=== PATIENT | female | born 1995 | race Caucasian/White ===

== ENCOUNTER → 2017-05-02 09:59 | Outpatient (CLI) | payer BC, SELFPAY ==
--- NOTE | 2017-05-02 10:05 | CT_ITS ---
CT abdomen pelvis w con CLINICAL INDICATION: Mid to lower abdominal pain with nausea ITS.REASON: LOW ABD PAIN, NAUSEA ORDERING PHYSICIAN: Olga Ramirez PATIENT AGE: 21 years COMPARISON: None TECHNIQUE: Axial images obtained with sagittal and coronal reformats. PROCEDURE: Oral Contrast: Redicat IV Contrast: 75 mL's of Isovue-370 Lower thorax: Unremarkable. Abdomen pelvis: The liver, gallbladder, spleen, adrenal glands, and pancreas has an unremarkable appearance. No renal calculi or hydronephrosis or ureteral calculi evident. Unremarkable appearing urinary bladder. Unremarkable appendix. There is moderate amount retained colonic feces throughout the colon. No evidence of small bowel obstruction. The uterus is anteverted with prominence of the isodensity of the endometrium having a somewhat didelphys appearance. Small area of decreased attenuation is present involving the body the uterus anteriorly at 8 mm. Consider ultrasound for further evaluation. 14 mm right ovarian cyst noted. No acute bony anomalies. IMPRESSION: 1. No acute abdominal or pelvic findings. 2. Constipation 3. Prominent endometrial isodensity with possible uterine didelphys. 8 mm isodensity in the body the anteverted uterus etiology indeterminate. Suggest ultrasound for further evaluation. 14 mm right ovarian cyst
== END ==
PROVIDERS: Family Provider Family Medicine; PCP Family Medicine; Visit Provider Nurse Practitioner
DX: R10.30 Lower abdominal pain, unspecified (principal); R11.0 Nausea
CPT/HCPCS: 74177

== ENCOUNTER → 2017-05-06 10:02 | Outpatient (CLI) | payer BC, SELFPAY ==
--- NOTE | 2017-05-06 10:08 | US_ITS ---
US abdomen limited Ordering Physician: Mart John MD Patient Age: 21 years: Female HISTORY: ITS.REASON: DYSPEPSIA TECHNIQUE: Transabdominal ultrasound COMPARISON :Recent CT abdomen 05/02/2017 FINDINGS Pancreas. Unremarkable.. Liver. No significant findings. Unremarkable no ductal dilatation. Portal vein normal direction flow and caliber. Gallbladder. No stones. Septations most evident at neck of GB, but also seen elsewhere at gallbladder-most evident at posterior wall.. Gallbladder wall normal to upper normal thickness. . Common duct normal diameter 3.1 mm at hilum of liver. Right kidney normal.: 10.4 cm in length with cortex well-maintained. IMPRESSION: 1. Gallbladder. No gallstones. Normal to upper normal wall thickness of GB with A few septations. 2. Otherwise unremarkable RUQ ultrasound
--- NOTE | 2017-05-06 10:08 | US_ITS ---
US transvaginal Ordering Physician: Mart John MD Patient Age: 21 years: Female HISTORY: ITS.REASON: RT OVARIAN CYSTS Left lower quadrant pain TECHNIQUE: Transvaginal pelvic ultrasound . Hayley Still COMPARISON :CT abdomen pelvis 05/02/2017 FINDINGS Anteflexed Uterus: 7.2 cm length as 3.5 cm x 1.8 cm. Thickened Endometrial stripe = 1.[address] uterus had a rather heart shaped didelphys appearance.. This this is less clear on today's ultrasound images but given generous transverse width of the uterus towards fundus on today's ultrasound body, I suspect this is indeed the case.. Also there the recent CT there was vague additional low-density adjacent to the endometrial stripe towards the posterior myometrium. I do not see a discrete fibroid on submitted images from today's ultrasound study to match.. & Technologist Hayley Still did not observe such either real-time imaging Ovaries contain numerous small follicles with rather polycystic appearance. Majority are small follicles measuring less millimeters or less size. Good flow to both ovaries Right ovary 3.8 x 2.3 x 2.3 cm With most prominent follicle measuring up to just less than 1 cm at the right ovary. Left ovary 2.6 x 2.3 x 1.6 cm. AP Minimal fluid collection at cul-de-sac measures up to 3 cm length x 3.6 cm transverse 1.6 cm AP IMPRESSION: 1. Thickened endometrial stripe measures 1.1 cm. The generous width of the superior uterus likely reflects the heart shaped/ didelphys appearance noted on recent CT pelvis 2. Numerous follicles both ovaries. The Larger right ovary up to 3.8 cm. It also contains most evident follicle measuring up to 1 cm] 3. Minimal fluid in cul-de-sac
--- NOTE | 2017-05-06 10:12 | NM_ITS ---
HEPATOBILIARY SCAN WITH CCK: ORDERING PHYSICIAN : Mart John MD PATIENT AGE: 21 years GENDER: Female HISTORY: Right upper quadrant pain and nausea Following 8.01 millicuries Tc Choletec, images of the right upper quadrant were obtained. There is prompt uptake of radionuclide by the liver which is grossly unremarkable. Small bowel is visualized. This initial pre-CCK portion of the study is normal. The gallbladder was allowed to fill out to 50 to 60 minutes which point 1.2 micrograms CCK was administered by way infusion pump in the typical fashion. This results in23% percent fraction (normal greater than 50%; borderline 35-50%). . IMPRESSION: Abnormal Low 23% ejection fraction following CCK administration . Reflects chronic cholecystitis and/or Biliary dyskinesia.
--- NOTE | 2017-05-06 11:03 | HMH.ITSHM ---
PAIN MED ANTIBIOTIC
== END ==
PROVIDERS: Family Provider Family Medicine; PCP Family Medicine; Visit Provider Family Medicine
DX: N83.201 Unspecified ovarian cyst, right side (principal); R93.8 Abnormal findings on diagnostic imaging of other specified body structures; R10.32 Left lower quadrant pain
CPT/HCPCS: 76705; 76830; 78227; A9537; J2805

== ENCOUNTER → 2017-05-20 14:07 | Outpatient (CLI) | payer BC, SELFPAY ==
[2017-05-20 14:24] LABS: Basophils # 0.1 K/mm3 (0-0.2); Basophils % 0.7 % (0.1-2.0); Eosinophils # 0.2 K/mm3 (0.0-0.4); Eosinophils % 2.2 % (0.1-12.0); Hematocrit 42.1 % (37.0-47.0); Hemoglobin 13.7 g/dL (12.2-16.2); Lymphocytes # 1.8 K/mm3 (0.7-4.5); Lymphocytes % 24.5 K/mm3 (10-50); Mean Corpuscular HGB Conc 32.5 g/dL (31.8-35.4); Mean Corpuscular Hemoglobin 29.4 pg (27.0-31.2); Mean Corpuscular Volume 90.6 fl (81-99); Mean Platelet Volume 7.5 fl (7.4-10.4); Monocytes # 0.3 K/mm3 (0.1-1.0); Monocytes % 4.1 % (1.7-9.3); Neutrophils # 4.9 K/mm3 (1.8-7.8); Neutrophils % 68.4 % (37.0-80.0); Platelet Count 249 K/mm3 (142-424); Red Blood Count 4.65 M/mm3 (4.20-5.40); Red Cell Distribution Width 12.3 % (11.5-17.5); White Blood Count 7.2 K/mm3 (4.5-13.0)
[2017-05-20 15:04] LABS: Alanine Aminotransferase 27 U/L (12-78); Albumin Level 4.1 gm/dL (3.4-5.0); Albumin/Globulin Ratio 1.2 (1.1-1.8); Alkaline Phosphatase 75 U/L (46-116); Anion Gap 13.1 mEq/L (5-15); Aspartate Amino Transferase 18 U/L (15-37); Bilirubin,Total 0.3 mg/dL (0.2-1.0); Blood Urea Nitrogen 17 mg/dL (7-18); Calcium 9.1 mg/dL (8.5-10.1); Carbon Dioxide 27 mmol/L (21.0-32.0); Chloride 107 mmol/L (98-107); Estimated Glomerular Filt Rate 91 ml/min (>60); GFR (African American) 111 ML/MIN (>60); Globulin 3.5 gm/dl (1.3-3.2); Glucose 92 mg/dL (74-106); Potassium 4.1 mmoL/L (3.5-5.1); Sodium 143 mmol/L (136-145); Total Protein,Serum 7.6 gm/dL (6.4-8.2)
== END ==
PROVIDERS: Visit Provider Surgery
DX: K82.9 Disease of gallbladder, unspecified; Z01.812 Encounter for preprocedural laboratory examination
CPT/HCPCS: 36415; 80053; 85025

== ENCOUNTER → 2022-10-25 23:41 | Outpatient (CLI) | payer SELFPAY ==
[2022-10-25 18:23] LABS: Coronavirus 19, PCR Not Detected (NotDetected); Influenza A, PCR Not Detected (NotDetected); Influenza B, PCR Not Detected (NotDetected)
[2022-10-25 18:46] LABS: Basophils % 0.1 % (0.1-2.0); Eosinophils % 0.1 % (0.1-12.0); Hematocrit 39.5 % (37.0-47.0); Hemoglobin 12.7 g/dL (12.2-16.2); Lymphocytes % 3.4 % (10-50); Mean Corpuscular HGB Conc 32.2 g/dL (31.8-35.4); Mean Corpuscular Hemoglobin 26.3 pg (27.0-31.2); Mean Corpuscular Volume 81.5 fl (81-99); Mean Platelet Volume 8.5 fl (7.4-10.4); Monocytes # 0.7 K/mm3 (0.1-1.0); Monocytes % 2.4 % (1.7-9.3); Neutrophils # 28.6 K/mm3 (1.8-7.8); Platelet Count 312 K/mm3 (142-424); Red Blood Count 4.85 M/mm3 (4.20-5.40); Red Cell Distribution Width 16.2 % (11.5-17.5); White Blood Count 30.4 K/mm3 (4.8-10.8)
[2022-10-25 18:51] LABS: MANUAL DIFFERENTIAL MANUAL DIFFERENTIAL (MANUAL DIFF)
[2022-10-25 20:13] LABS: Lymphocytes % 7 % (10-50); Monocytes % 1 % (2-9); Neutrophils % 92 % (42-76); Ovalocytes 1+; Platelet Estimate Normal; Total Cells Counted 100
== END ==
PROVIDERS: PCP Nurse Practitioner; Visit Provider Nurse Practitioner
DX: J06.9 Acute upper respiratory infection, unspecified (principal)
CPT/HCPCS: 85007; 85025; 87636